=== PATIENT | male | born 1930 | race Caucasian/White ===

== ENCOUNTER 2018-12-29 14:16 | Inpatient (IN) | payer MEDICARE ==
[2018-12-29] MEDS ORDERED: Guaifenesin DM 100-10/5 ML UDCUP PO PRN (17:33)
[2018-12-29] MEDS ORDERED: Bisacodyl 10 MG SUPP PR PRN (17:33)
[2018-12-29] MEDS ORDERED: Acetaminophen 325 MG TAB PO PRN (17:33)
[2018-12-29] MEDS ORDERED: Senokot S 8.6-50 MG TAB PO PRN (17:33)
[2018-12-29 20:38] LABS: Troponin I 0.271 ng/mL (< 0.028)
[2018-12-29] MEDS: Sodium Chloride 0.9% 1,000 ML IV SCH (21:02)
--- NOTE | 2018-12-29 21:20 | HP ---
REASON FOR ADMISSION: Syncope, renal cancer with mets to lungs and likely brain , possible pacemaker malfunction. HISTORY OF PRESENTING ILLNESS: The patient was found down on the floor by his daughter who lives 7 miles from him. She spoke to him yesterday morning, he was all right. The patient states he slept on the floor and he could not get up. He states he was close to his bed, but could not really get up from the floor. Per daughter, he was conscious, but was naked and lying on the floor. He was oriented and responding to questions. Son at bedside who is also the power of prosecuting attorney states that from last 2 months his cognitive function has been slowly declining. He is getting more confused than before. Currently, he has no complaints of chest pain, palpitation, PND, or orthopnea. PAST MEDICAL AND SURGICAL HISTORY: The patient has known history of renal cancer diagnosed in 2001. He was seeing an onc in [place] and has stopped seeing him for the last 2 years now. The patient is not on any medications for the same. Prior to this, he was on sunitinib. He was told that he has had low- grade variety of renal cancer. He has had right nephrectomy for the same done, pacemaker, dyslipidemia, hypertension, chronic atrial fibrillation. CURRENT MEDICATIONS: 1. The patient is on Coumadin, but apparently he is not taking it. 2. Ativan 0.5 mg p.o. at bedtime. 3. Lipitor 10 mg p.o. at bedtime. 4. Coreg 25 mg twice daily. 5. Nifedipine unknown dose daily. ALLERGIES: ALLERGIC TO PENICILLIN. PERSONAL HISTORY: Does not abuse alcohol or drugs. No history of smoking. FAMILY HISTORY: Father committed suicide. The patient does not recall the exact cause of his mom's . CODE STATUS: Do not attempt to resuscitate. This was confirmed with the patient and his son, who is also power of prosecuting attorney at bedside. REVIEW OF SYSTEMS: CONSTITUTIONAL: Negative for weight loss or gain, ability to conduct usual activities. SKIN: Negative for rash, itching. EYES: Negative for double vision, pain. ENT/MOUTH: Negative for nose bleeding, neck stiffness, pain, tenderness. CARDIOVASCULAR: Negative for palpitations, dyspnea on exertion, orthopnea. RESPIRATORY: Negative for shortness of breath, wheezing, cough, hemoptysis, fever or night sweats. GASTROINTESTINAL: Negative for poor appetite, abdominal pain, heartburn, nausea , vomiting, constipation, or diarrhea. GENITOURINARY: Negative for urgency, frequency, dysuria, nocturia. MUSCULOSKELETAL: Negative for pain, swelling. NEUROLOGIC/PSYCHIATRIC: Negative for anxiety, depression. ALLERGY/IMMUNOLOGIC: Negative for skin rash, bleeding tendency. PHYSICAL EXAMINATION: GENERAL: The patient is an 88-year-old male who is currently not in any acute distress. VITAL SIGNS: Blood pressure is 126/74, pulse 110 per minute, respiratory rate 18 per minute, temperature 98 degrees Fahrenheit, and saturating 98% on nasal cannula. NECK: Supple. No elevated JVD. HEENT: Eyes; extraocular muscles intact. Pupils reacting to light. Oral cavity, mucous membranes are dry. No exudates or congestion. CARDIOVASCULAR: S1 and S2 heard. Murmur plus. RESPIRATORY: Air entry 1+ bilateral. Scattered rhonchi plus no rales or wheezes. ABDOMEN: Soft. Bowel sounds heard. No tenderness, rigidity, or guarding. EXTREMITIES: No peripheral edema or calf tenderness. VASCULAR SYSTEM: Peripheral pulses 1+ bilateral. No ischemic ulcerations or gangrene. CENTRAL NERVOUS SYSTEM: No gross focal deficits noted. The patient is alert and awake, but is not fully oriented. PSYCHIATRIC SYSTEM: No obvious hallucinations or delusions. LABORATORY DATA: Chest x-ray done shows bilateral pulmonary nodules consistent with metastatic disease to the lungs. CT head without contrast done showed no acute bleed. There is intraventricular mass in the right lateral ventricle. CK-MB 12.3, troponin I 0.27, CK levels 988, albumin is 2.9, BUN 22, creatinine 1.8, serum bicarb is 18, potassium 3.4, serum glucose 137, AST 38, ALT 22, alkaline phosphatase is 77. PT and INR 15.8 and 1.3. White count of 11, H and H 9.6 and 29, platelet count 331 with 86% neutrophils, MCV is 80. Stool occult blood x1 is negative. The patient's EKG shows sinus rhythm at 80 beats per minute. There is wide QRS complex seen. Q-waves seen in V1, V2, V3, V4. Corrected QT interval is 514 milliseconds, QRS duration is 134 milliseconds. CLINICAL IMPRESSION AND PLAN: The patient will be admitted to telemetry for rhabdomyolysis, syncope, being found on the floor likely for 12 to 24 hours, metastatic renal cell cancer, possible pacemaker malfunction. He will be placed on normal saline at 100 mL/h. We will hold off on anti-platelet agent in view of hemoglobin dropping from 11 g in September to 9 g now and history of black stools a week back. We will obtain pacemaker printout. We will obtain MRI with and without contrast, if his pacemaker is MRI compatible, echo with 2D Doppler for LV function. The family would like to have opinion about his cancer and we will obtain Oncology consultation with Dr. Salomon. Cardiology consultation with Dr. Kohler will be requested. The patient has history of nephrectomy and his current creatinine is 1.8 with baseline around 1.4. He will be gently hydrated with normal saline at 100 mL/h. His overall prognosis is guarded with likely progressive renal cell cancer. The family is also contemplating comfort care at some point after reviewing what the specialist tell them. Also the patient is a bit confused at present and will ask his opinion in the morning once he is more hydrated with likely better cognitive function in the morning. Job ID: [id number] MTDD
[2018-12-29 23:46] VITALS: BMI 26.9
[2018-12-30] MEDS: Sodium Chloride 0.9% 1,000 ML IV SCH ×3 (04:43→20:18)
[2018-12-30 06:12] LABS: #Lymphocytes 1.4 thou/uL (1.20-3.40); #Monocytes 0.6 thou/uL (0.11-0.59); #Neutrophils 8.2 thou/uL (1.40-6.50); %Basophils 0.2 % (0.0-1.0); %Eosinophils 0.1 % (0.0-10.0); %Lymphocytes 13.8 % (21.0-51.0); %Monocytes 5.6 % (0.0-10.0); %Neutrophils 80.3 % (42.0-75.0); Hemoglobin 9.5 g/dL (14.0-18.0); Mean Corpuscular HGB CONC 31.7 g/dL (32.0-36.0); Mean Corpuscular Hemoglobin 26.8 pg (27.0-31.0); Mean Corpuscular Volume 84.7 fL (78.0-98.0); Mean Platelet Volume 5.9 fL (7.4-10.4); Platelet Count 338 thou/uL (130-400); Red Blood Cell (RBC) Count 3.55 mill/uL (4.70-6.10); White Blood Cell (WBC) Count 10.2 thou/uL (4.8-10.8)
[2018-12-30 06:34] LABS: Anion Gap 11 mmol/L (10-20); BUN (Urea Nitrogen) 29 mg/dL (8.4-25.7); Calc. Creatinine Clearance 31 mL/min (70-130); Calcium 8.5 mg/dL (7.8-10.44); Carbon Dioxide 22 mmol/L (23-31); Chloride 105 mmol/L (98-107); Estimated GFR-MDRD 33; Glucose 115 mg/dL (83-110); Potassium 3.4 mmol/L (3.5-5.1); Sodium 135 mmol/L (136-145)
[2018-12-30] MEDS: Carvedilol 3.125 MG TAB PO SCH ×2 (08:45→17:43)
[2018-12-30] MEDS: Enoxaparin Sodium 30 MG/0.3 ML SYRINGE SC SCH (08:45)
--- NOTE | 2018-12-30 11:58 | PDOC.HOSPP ---
- Subjective Encounter Date: 12/30/18 Encounter Time: 11:15 Subjective: awake, not fully oriented daughter at bedside didn't eat much of breakfast this am - Objective Vital Signs & Weight: Vital Signs (12 hours) Temp Pulse Resp BP Pulse Ox 12/30/18 11:30 97.7 F 70 17 103/53 L 97 12/30/18 08:45 95 12/30/18 07:38 98.4 F 75 16 122/58 L 95 12/30/18 03:25 97.5 F L 81 18 119/77 94 L 12/29/18 23:57 97.9 F 75 18 137/60 94 L Weight Weight 188 lb Result Diagrams: 12/30/18 05:44 12/30/18 05:44 Hospitalist ROS - Medication Medications: Active Medications Generic Name Dose Route Start Last Admin Trade Name Freq PRN Reason Stop Dose Admin Carvedilol 3.125 mg 12/30/18 08:00 12/30/18 08:45 Coreg PO 3.125 mg BID-WM JOSE Administration Enoxaparin Sodium 30 mg 12/30/18 09:00 12/30/18 08:45 Lovenox SC 30 mg 0900 JOSE Administration Sodium Chloride 1,000 mls @ 100 mls/hr 12/29/18 17:33 12/30/18 04:43 Normal Saline 0.9% IV 1,000 mls .Q10H JOSE Administration - Exam General Appearance: NAD, awake alert Eye: PERRL, anicteric sclera ENT: no oropharyngeal lesions, dry oral mucosa Neck: supple, no JVD Heart: RRR, no murmur Respiratory: no wheezes, no rales Gastrointestinal: soft, non-tender, non-distended, normal bowel sounds Extremities: no cyanosis, no edema Neurological: cranial nerve grossly intact, no focal deficits Hosp A/P (1) AMARI (acute kidney injury) Code(s): N17.9 - ACUTE KIDNEY FAILURE, UNSPECIFIED Status: Acute (2) Rhabdomyolysis Code(s): M62.82 - RHABDOMYOLYSIS Status: Acute (3) h/o renal cancer with metastases Status: Chronic (4) Physical deconditioning Code(s): R53.81 - OTHER MALAISE Status: Acute (5) Syncope Code(s): R55 - SYNCOPE AND COLLAPSE Status: Acute Qualifiers: Encounter type: subsequent encounter (6) Pacemaker malfunction Code(s): T82.111A - BREAKDOWN OF CARDIAC PULSE GENERATOR (BATTERY), INIT Status: Suspected (7) HTN (hypertension) Code(s): I10 - ESSENTIAL (PRIMARY) HYPERTENSION Status: Chronic Qualifiers: Hypertension type: essential hypertension Qualified Code(s): I10 - Essential (primary) hypertension (8) Chronic anemia Code(s): D64.9 - ANEMIA, UNSPECIFIED Status: Chronic (9) Afib Code(s): I48.91 - UNSPECIFIED ATRIAL FIBRILLATION Status: Chronic Qualifiers: Atrial fibrillation type: paroxysmal Qualified Code(s): I48.0 - Paroxysmal atrial fibrillation - Plan continue gentle iv hydration, ck levels are down to 300's this am creatinine still around 2 pacemaker print out is pending had echo done this am has multiple mets from renal cancer (not on any treatment for 2 yrs now) family wants opinion from Onc MRI brain if pcm is compatible prognosis is guarded PT/OT to mobilize as tolerated d/w daughter at bedside and patient
[2018-12-31 05:34] LABS: #Lymphocytes 1.2 thou/uL (1.20-3.40); #Monocytes 0.5 thou/uL (0.11-0.59); #Neutrophils 6.1 thou/uL (1.40-6.50); %Basophils 0.1 % (0.0-1.0); %Eosinophils 0.4 % (0.0-10.0); %Lymphocytes 15.5 % (21.0-51.0); %Monocytes 6.6 % (0.0-10.0); %Neutrophils 77.4 % (42.0-75.0); Hemoglobin 8.9 g/dL (14.0-18.0); Mean Corpuscular HGB CONC 31.3 g/dL (32.0-36.0); Mean Corpuscular Hemoglobin 26.7 pg (27.0-31.0); Mean Corpuscular Volume 85.5 fL (78.0-98.0); Platelet Count 303 thou/uL (130-400); RBC Distribution Width 15.9 % (11.5-14.5); Red Blood Cell (RBC) Count 3.34 mill/uL (4.70-6.10); White Blood Cell (WBC) Count 7.8 thou/uL (4.8-10.8)
[2018-12-31 05:51] LABS: Anion Gap 12 mmol/L (10-20); BUN (Urea Nitrogen) 27 mg/dL (8.4-25.7); CK (CPK) 149 U/L (30-200); Calc. Creatinine Clearance 40 mL/min (70-130); Calcium 7.9 mg/dL (7.8-10.44); Carbon Dioxide 19 mmol/L (23-31); Chloride 109 mmol/L (98-107); Estimated GFR-MDRD 44; Glucose 107 mg/dL (83-110); Potassium 3.2 mmol/L (3.5-5.1); Sodium 137 mmol/L (136-145)
[2018-12-31] MEDS: Potassium Chloride 20 MEQ TAB PO SCH ×2 (08:52→17:10)
[2018-12-31] MEDS: Ondansetron PF 4 MG/2 ML Vial IVP PRN (08:53)
[2018-12-31] MEDS: Carvedilol 3.125 MG TAB PO SCH ×2 (08:53→17:10)
--- NOTE | 2018-12-31 09:32 | CON ---
DATE OF CONSULTATION: REASON FOR CONSULTATION: Metastatic renal cell carcinoma. HISTORY OF PRESENT ILLNESS: An 88-year-old male with metastatic renal cell carcinoma, who presents to the hospital after being found down on the floor by his daughter. The patient states that he did not lose consciousness. The patient was admitted to the hospital and found to be in rhabdomyolysis, which is currently improving. According to the patient and daughter, he was diagnosed with renal cell carcinoma in approximately 2001 and treated with right nephrectomy and it recurred approximately 10 years later around 2011, and he was treated at [facility] with Sutent for approximately 4 to 5 years with good response, but poor tolerability. The patient states that he only had lung metastasis. Sutent was stopped, and he tried another unknown medicine, but did not tolerate it and only took it for one cycle. He has been off treatment for approximately 2 years without any surveillance or otherwise. He currently only complains of nausea and is not concerned with anything else with time. He states that he does not want any treatment for his cancer. REVIEW OF SYSTEMS: Ten-point review of systems, negative except as per HPI. PAST MEDICAL HISTORY: Renal cell carcinoma, AFib, post pacemaker, hyperlipidemia, hypertension. SOCIAL HISTORY: No smoking, alcohol, or drugs. FAMILY HISTORY: The patient is not sure. CURRENT MEDICATIONS: Reviewed. ALLERGIES: PENICILLIN. PHYSICAL EXAMINATION: VITAL SIGNS: Temperature 97.6, pulse 86, respirations 16, saturating 95% on room air, blood pressure 128/60 up to 188/76. GENERAL APPEARANCE: The patient is lying in bed, in no acute distress. HEENT: Normocephalic and atraumatic. CARDIOVASCULAR: S1, S2 with murmur. RESPIRATIONS: Clear to auscultation. ABDOMEN: Soft, nondistended, nontender. EXTREMITIES: No edema. NEUROLOGIC: Cranial nerves 2 through 12 are grossly intact. Otherwise nonfocal examination. PSYCHIATRIC: Awake, alert, and oriented x3. LABORATORY DATA: White blood cell 7.8, hemoglobin 8.9, and platelets 303. Sodium 137, potassium 3.2, chloride 109, carbon dioxide 19, BUN 27, creatinine 1.93, trending down to 1.51, CK-MB 10, CK 367, currently 149, and troponin peaked at 0.277. IMAGING DATA: CT of the brain w/o contrast shows a rounded intraventricular mass located at the posterior right lateral ventricle that abuts the septum pellucidum measuring 2.3 cm. ASSESSMENT AND PLAN: An 88-year-old male with metastatic renal cell carcinoma with a 2.3 cm brain mass. The patient does not want any specific treatment for his renal cell carcinoma. His performance status prior to this event was very good, and he was driving last week. He would be a candidate for immunotherapy; however, he does not want any treatment. For his brain mass, this could be contributing to some vomiting; however, otherwise is not causing any problems at this time. Renal cell carcinoma has a high risk of being hemorrhagic in the brain, and the patient may benefit from palliative SRS to this lesion to prevent any problems in the future. I have discussed this with the patient and he is open to discussing with Dr. Cabrales, so I will consult him. If the patient changes his mind about systemic treatment I would offer nivolumab, otherwise hospice would be appropriate. Thank you for this consult. Job ID: [id number] MTDD
[2018-12-31] MEDS: Enoxaparin Sodium 30 MG/0.3 ML SYRINGE SC SCH (10:14)
[2018-12-31] MEDS: Sodium Chloride 0.9% 1,000 ML IV SCH ×3 (10:42→20:20)
--- NOTE | 2018-12-31 12:18 | CON ---
DATE OF CONSULTATION: 12/31/2018 REASON FOR CONSULTATION: Mr. De La Cruz is an 88-year-old gentleman with a long history of metastatic renal cell carcinoma, who now presents with at least a solitary brain metastasis. HISTORY OF PRESENT ILLNESS: Mr. De La Cruz was initially diagnosed with renal cell carcinoma in 2001. He apparently underwent a right nephrectomy at that time at [facility]. In 2010, he experienced a recurrence in the lungs. He was treated with Sutent for 4 or 5 years, and apparently, had a good response with that. However, he then began to progress. His oncologist retired, and he switched to another oncologist and did take some different oral medications off and on for a year or two. However, he has not taken any active treatment in the past couple of years and has not followed up with Oncology. Recently, he was found by his daughter to be on the floor and he could not get up. He was conscious and responding, but states he could not get off the floor. He was seen in the emergency room, and a CT scan of the head was performed without contrast, which showed a 2.3 cm intraventricular mass in the right lateral ventricle. There was no evidence of hemorrhage. Ventricular size was felt to be at the upper limits of normal. He had a chest x-ray, which showed numerous lesions consistent with lung metastasis. He was felt to possibly have rhabdomyolysis as his creatine kinase was elevated. His creatinine has also been elevated. He has been admitted to the hospital under gentle hydration. His confusion has improved because of that. Presently, since he has been in the hospital, he has been having vomiting on most days. He denies any nausea or headaches. However, his eating and drinking has significantly decreased in the past several months. He does have some pain in his back, which he attributes to lying in bed. Apparently, he was not having back pain before that. He voices no other complaints. PAST MEDICAL HISTORY: 1. Renal cell carcinoma as mentioned above, status post right radical nephrectomy. 2. Hypertension. 3. Chronic atrial fibrillation. 4. Hypercholesterolemia. 5. Pacemaker placement. 6. He denies other medical surgical problems. MEDICATIONS: 1. Coreg. 2. Lovenox. 3. Zofran. 4. Potassium. ALLERGIES: PENICILLIN, WHICH CAUSES AN UNKNOWN REACTION MANY YEARS AGO. SOCIAL HISTORY: He has no alcohol or cigarette use. He was living in [place], [place] by himself. He does have family members nearby. FAMILY HISTORY: His father at age 57 from suicide. Mother at age 50 from a stroke. There is no other family history of malignancies. REVIEW OF SYSTEMS: Twelve-system review of systems is otherwise negative. PHYSICAL EXAMINATION: VITAL SIGNS: Height is 5 feet 10 inches, weight is 188 pounds, blood pressure is 188/76, pulse is 86, respirations are 16, temperature is 97.6, O2 saturation is 95%. CONSTITUTIONAL: He is alert, but does have some mild confusion. However, with some prompting, he is able to get most details. He did get the year and the month correct. He did not understand his present situation totally, although I could answer many questions about his kidney cancer. He did not recall the last two presidents with some prompting. Karnofsky performance status is a 40%. HEENT: Eyes; pupils equal, round, and reactive to light. Extraocular movements are intact. ENT; oral cavity and oropharynx normal without lesion or erythema. Palate elevates symmetrically. Gingiva is intact. Dentition is poor. NECK: Supple without cervical adenopathy. No thyromegaly. Larynx midline. LUNGS: Breathing nonlabored. Clear to auscultation and percussion. CARDIOVASCULAR: Heart, regular rate and rhythm without murmur. No lower extremity edema. LYMPHATIC: No axillary or inguinal adenopathy. ABDOMEN: Bowel sounds present. Soft, nontender, nondistended without mass or hepatosplenomegaly. Liver percusses to normal size. SKIN: Without rash or purpura. NEUROLOGIC: Cranial nerves 2 through 12 are grossly intact. Motor strength is 5/5 in both upper and lower extremities in all muscle groups tested. However, the patient is unable to sit up, and ambulation is not able to be tested. RADIOLOGIC DATA: CT scan of the head performed in [place], and chest x-ray were both personally reviewed. Again, a CT scan of the head shows a 2.3 cm intraventricular mass in the right lateral ventricle. There does not appear to be any hydrocephalus. There is no evidence of hemorrhage. The chest x-ray was personally reviewed and shows numerous lesions in the lung consistent with lung metastasis with the largest being 5.4 cm. LABORATORY DATA: CBC revealed a white blood cell count of 7800 with a hemoglobin of 8.9, hematocrit of 28.5, and platelet count of 303,000. Chemistry group showed fairly normal electrolytes. His creatinine is 1.51 today. His creatine kinase has decreased from 367 to 149. ASSESSMENT: Mr. De La Cruz is an 88-year-old gentleman with a long history of metastatic renal cell carcinoma, who now presents with at least a solitary brain metastasis. Of note, his CT scan did not have contrast. He also is not able to undergo an MRI because of his pacemaker. He has other comorbid problems including he was felt to have rhabdomyolysis on admission, which has improved. His kidney function is back to baseline. He still has some confusion, although answers most details fairly well. PLAN: I have recommended that we start him on dexamethasone and Protonix to try and help with his symptoms. His symptoms of vomiting are perhaps related to the lesion in his brain. His decreased appetite and failure to thrive are likely related to his progressive cancer. I had a lengthy discussion with him and his daughter, who is at his bedside regarding his possible treatment options. One option that we discussed was that of hospice care. Given his poor performance status and the fact that he does not have curable disease, this I think is a reasonable option. We discussed that would be supportive care only and that his survival would likely be measured in months. We then discussed options for treatment. If we are going to pursue treatment, I would like to get a CT scan of the head with contrast if possible. However, that maybe somewhat limited also given his tenuous kidney status. He cannot have an MRI of the brain unfortunately, because of this pacemaker. This would be to evaluate for more than 1 lesion. Possible options for treatment could include either whole-brain radiation therapy or even more focal treatment to the solitary brain metastasis, if it indeed was solitary on CT scan. The logistics of radiation as well as the benefits and risk of treatment were discussed. Side effects would include, but not be limited to skin reaction, fatigue, lower blood counts, hair losses maybe permanent, headache, nausea, vomiting, and small risk of damage to his normal brain. Again, we had a lengthy discussion regarding his prognosis and treatment options. He clearly indicates that he does not wish to pursue any additional therapy at this time. He understands that his survival is likely to be quite short, but also understands that he does not have curative disease and even with treatment at best, his survival, which would still likely be less than a year. He again indicates a desire not to do any treatment with radiation therapy. He only wants to pursue care with hospice. I asked him to contact me should they change their mind or should they have additional questions. I will communicate this to his hospitalist team, so they can start working on hospice arrangements. Thank you for this interesting consultation. Job ID: [id number]
[2018-12-31] MEDS ORDERED: traMADol HCl 50 MG TAB PO PRN (12:54)
[2018-12-31] MEDS ORDERED: Morphine 2 MG/ML SYRINGE SLOW IVP SCH (13:00)
[2018-12-31] MEDS ORDERED: Promethazine HCl 25 MG/ML VIAL SLOW IVP PRN (13:41)
--- NOTE | 2018-12-31 13:53 | PDOC.HOSPP ---
- Subjective Encounter Date: 12/31/18 Encounter Time: 09:00 Subjective: awake, not in distress daughter at bedside - Objective Vital Signs & Weight: Vital Signs (12 hours) Temp Pulse Resp BP Pulse Ox 12/31/18 11:56 97.4 F L 78 15 157/74 H 98 12/31/18 07:59 97.6 F 86 16 188/76 H 95 12/31/18 04:00 97.4 F L 80 18 128/60 97 Weight Weight 188 lb I&O: 12/30/18 12/31/18 01/01/19 06:59 06:59 06:59 Intake Total 2650 Output Total 825 Balance 1825 Result Diagrams: 12/31/18 04:43 12/31/18 04:43 Hospitalist ROS - Medication Medications: Active Medications Generic Name Dose Route Start Last Admin Trade Name Freq PRN Reason Stop Dose Admin Carvedilol 3.125 mg 12/30/18 08:00 12/31/18 08:53 Coreg PO 3.125 mg BID-WM JOSE Administration Enoxaparin Sodium 30 mg 12/30/18 09:00 12/31/18 10:14 Lovenox SC 30 mg 0900 JOSE Administration Sodium Chloride 1,000 mls @ 100 mls/hr 12/29/18 17:33 12/31/18 10:42 Normal Saline 0.9% IV 1,000 mls .Q10H JOSE Administration Morphine Sulfate 2 mg 12/31/18 13:00 12/31/18 13:16 Morphine SLOW IVP 12/31/18 15:00 2 mg NOW JOSE Administration Ondansetron HCl 4 mg 12/31/18 08:44 12/31/18 08:53 Zofran IVP 4 mg Q6H PRN Administration Nausea/Vomiting Potassium Chloride 40 meq 12/31/18 08:00 12/31/18 08:52 K-Dur PO 01/01/19 08:01 40 meq BID-WM JOSE Administration - Exam General Appearance: awake alert Eye: PERRL, anicteric sclera ENT: no oropharyngeal lesions, dry oral mucosa Neck: supple, no JVD Heart: RRR, no murmur Respiratory: no wheezes, no rales Gastrointestinal: soft, non-tender, normal bowel sounds Extremities: no cyanosis, no edema Neurological: cranial nerve grossly intact, no focal deficits Hosp A/P (1) AMARI (acute kidney injury) Code(s): N17.9 - ACUTE KIDNEY FAILURE, UNSPECIFIED Status: Acute (2) Rhabdomyolysis Code(s): M62.82 - RHABDOMYOLYSIS Status: Resolved (3) h/o renal cancer with metastases Status: Chronic (4) Physical deconditioning Code(s): R53.81 - OTHER MALAISE Status: Acute (5) Syncope Code(s): R55 - SYNCOPE AND COLLAPSE Status: Resolved Qualifiers: Encounter type: subsequent encounter (6) Pacemaker malfunction Code(s): T82.111A - BREAKDOWN OF CARDIAC PULSE GENERATOR (BATTERY), INIT Status: Suspected (7) HTN (hypertension) Code(s): I10 - ESSENTIAL (PRIMARY) HYPERTENSION Status: Chronic Qualifiers: Hypertension type: essential hypertension Qualified Code(s): I10 - Essential (primary) hypertension (8) Chronic anemia Code(s): D64.9 - ANEMIA, UNSPECIFIED Status: Chronic (9) Afib Code(s): I48.91 - UNSPECIFIED ATRIAL FIBRILLATION Status: Chronic Qualifiers: Atrial fibrillation type: paroxysmal Qualified Code(s): I48.0 - Paroxysmal atrial fibrillation - Plan continue gentle iv hydration creatinine still around 1.5 this am pacemaker ?malfunction issue per cardio has multiple mets from renal cancer (not on any treatment for 2 yrs now) Onc and rad onc have spoken to patient and family, they have opted for hospice prognosis is guarded PT/OT to mobilize as tolerated d/w daughter at bedside and patient He is started on steroid for nausea/vomiting with brain met this am
[2018-12-31] MEDS ORDERED: Morphine 2 MG/ML SYRINGE SLOW IVP PRN (17:00)
[2018-12-31] MEDS: Dexamethasone 4 MG TAB PO SCH (20:15)
[2019-01-01 05:45] LABS: Anion Gap 10 mmol/L (10-20); BUN (Urea Nitrogen) 21 mg/dL (8.4-25.7); Calc. Creatinine Clearance 48 mL/min (70-130); Carbon Dioxide 19 mmol/L (23-31); Chloride 112 mmol/L (98-107); Estimated GFR-MDRD 54; Glucose 127 mg/dL (83-110); Potassium 4.5 mmol/L (3.5-5.1); Sodium 136 mmol/L (136-145)
[2019-01-01] MEDS: Levothyroxine Sodium 50 MCG TAB PO SCH (05:47)
[2019-01-01] MEDS: Carvedilol 3.125 MG TAB PO SCH ×2 (08:31→16:18)
[2019-01-01] MEDS: Dexamethasone 4 MG TAB PO SCH ×2 (10:10→20:35)
[2019-01-01] MEDS: Ferrous Sulfate 325 MG TAB PO SCH ×2 (10:10→16:18)
[2019-01-01] MEDS: Enoxaparin Sodium 30 MG/0.3 ML SYRINGE SC SCH (10:11)
[2019-01-01] MEDS: Timolol 0.5% Ophth Soln 5 ml Bottle EA EYE SCH (10:17)
[2019-01-01 10:23] LABS: Iron 13 ug/dL (65-175); Iron Binding Capacity, Total 174 mcg/dL (261-462)
--- NOTE | 2019-01-01 12:52 | PDOC.HOSPP ---
- Subjective Encounter Date: 01/01/19 Encounter Time: 10:45 Subjective: awake, no sob or chest pain son and daughter at bedside - Objective Vital Signs & Weight: Vital Signs (12 hours) Temp Pulse Resp BP BP BP Pulse Ox 01/01/19 11:38 97.5 F L 76 16 142/63 H 98 01/01/19 10:17 78 151/70 H 01/01/19 07:56 94/38 L 01/01/19 07:39 97.3 F L 77 16 87/37 L 97 01/01/19 04:00 98.2 F 74 18 119/57 L 94 L Weight Weight 188 lb I&O: 12/31/18 01/01/19 01/02/19 06:59 06:59 06:59 Intake Total 2650 1890 Output Total 825 625 Balance 1825 1265 Result Diagrams: 12/31/18 04:43 01/01/19 04:54 Hospitalist ROS - Medication Medications: Active Medications Generic Name Dose Route Start Last Admin Trade Name Freq PRN Reason Stop Dose Admin Carvedilol 3.125 mg 12/30/18 08:00 01/01/19 08:31 Coreg PO Not Given BID-WM JOSE Dexamethasone 4 mg 12/31/18 21:00 01/01/19 10:10 Decadron PO 4 mg BID JOSE Administration Enoxaparin Sodium 30 mg 12/30/18 09:00 01/01/19 10:11 Lovenox SC 30 mg 899 JOSE Administration Ferrous Sulfate 325 mg 01/01/19 08:00 01/01/19 10:10 Feosol PO 325 mg BID-WM JOSE Administration Sodium Chloride 1,000 mls @ 50 mls/hr 12/31/18 14:00 12/31/18 20:20 Normal Saline 0.9% IV 1,000 mls .Q20H JOSE Administration Levothyroxine Sodium 50 mcg 01/01/19 06:00 01/01/19 05:47 Synthroid PO 50 mcg 0600 JOSE Administration Ondansetron HCl 4 mg 12/31/18 08:44 12/31/18 08:53 Zofran IVP 4 mg Q6H PRN Administration Nausea/Vomiting Pantoprazole Sodium 40 mg 01/01/19 09:00 01/01/19 10:11 Protonix PO 40 mg DAILY JOSE Administration Timolol Maleate 1 drop 01/01/19 09:00 01/01/19 10:17 Timoptic 0.5% Ophth Soln EA EYE 1 drop DAILY JOSE Administration - Exam General Appearance: awake alert Eye: PERRL, anicteric sclera ENT: no oropharyngeal lesions, moist mucosa Neck: supple, no JVD Heart: RRR, no murmur Respiratory: no wheezes, no rales Gastrointestinal: soft, non-tender, non-distended, normal bowel sounds Extremities: no cyanosis, no edema Neurological: cranial nerve grossly intact, no focal deficits Hosp A/P (1) AMARI (acute kidney injury) Code(s): N17.9 - ACUTE KIDNEY FAILURE, UNSPECIFIED Status: Resolved (2) Rhabdomyolysis Code(s): M62.82 - RHABDOMYOLYSIS Status: Resolved (3) h/o renal cancer with metastases Status: Chronic (4) Physical deconditioning Code(s): R53.81 - OTHER MALAISE Status: Acute (5) Syncope Code(s): R55 - SYNCOPE AND COLLAPSE Status: Resolved Qualifiers: Encounter type: subsequent encounter (6) Pacemaker malfunction Code(s): T82.111A - BREAKDOWN OF CARDIAC PULSE GENERATOR (BATTERY), INIT Status: Suspected (7) HTN (hypertension) Code(s): I10 - ESSENTIAL (PRIMARY) HYPERTENSION Status: Chronic Qualifiers: Hypertension type: essential hypertension Qualified Code(s): I10 - Essential (primary) hypertension (8) Chronic anemia Code(s): D64.9 - ANEMIA, UNSPECIFIED Status: Chronic (9) Afib Code(s): I48.91 - UNSPECIFIED ATRIAL FIBRILLATION Status: Chronic Qualifiers: Atrial fibrillation type: paroxysmal Qualified Code(s): I48.0 - Paroxysmal atrial fibrillation - Plan creatinine almost normal and at baseline given one kidney. pacemaker ?malfunction issue per cardio/EP has multiple mets from renal cancer (not on any treatment for 2 yrs now) Onc and rad onc have spoken to patient and family, they have opted for hospice prognosis is guarded PT/OT to mobilize as tolerated d/w daughter and son at bedside and patient on steroid for nausea/vomiting with brain mets Family is comtemplating Home with 24hr care and hospice or snf with hospice CM to discuss above options with family.
--- NOTE | 2019-01-01 14:44 | PQF ---
JU CONTRERAS, XAVI FOLEY MD [id number] CLINICAL DOCUMENTATION IMPROVEMENT CLARIFICATION FORM: ICD-10 Updated PLEASE DO AN ADDENDUM TO THE PROGRESS NOTE WITH ANY DOCUMENTATION UPDATES OR ADDITIONS AND CARRY THROUGH TO DC SUMMARY. THANK YOU. DATE: 01/01/19 , 01/03/19 ATTN:DR. Hiwot LORENZANA Please exercise your independent, professional judgment in responding to the clarification form. Clinical indicators are provided on the bottom of this form for your review. Please check appropriate box(s): [ x ] Traumatic Rhabdomyolysis [ ] Rhabdomyolysis [ ] Other diagnosis [ ] Unable to determine In addition, please specify: Present on Admission (POA): [ x ] Yes [ ] No [ ] Unable to determine For continuity of documentation, please document condition throughout progress notes and discharge summary. Thank You. CLINICAL INDICATORS - SIGNS / SYMPTOMS / LABS 12/30 BUN 27 CR 1.93 12/31 BUN 29 CR 1.51 12/29 H&P (SALOMÓN) HPI: THE PATIENT WAS FOUND DOWN ON THE FLOOR BY HIS DAUGHTER WHO LIVES 7 MILES FROM HIM. SHE SPOKE TO HIM YESTERDAY MORNING, HE WAS ALRIGHT. THE PATIENT STATES HE SLEPT ON THE FLOOR AND HE COULD NOT GET UP. HE STATES HE WAS CLOSE TO HIS BED, BUT COULD NOT REALLY GET UP FROM THE FLOOR. PER DAUGHTER, HE WAS CONSCIOUS, BUT WAS NAKED AND LYING ON THE FLOOR. HE WAS ORIENTED AND RESPONDING TO QUESTIONS. IMPRESSION AND PLAN: THE PT WILL BE ADMITTED TO [facility] FOR RHABDOMYOLYSIS , SYNCOPE, BEING FOUND ON THE FLOOR FOR LIKELY 12-24 HOURS. 12/30-12/31 PN (SALOMÓN) A/P : 1). ACUTE KIDNEY INJURY, 2). RHABDOMYOLYSIS RISK: AMARI, H/O RENAL CELL CANCER W METS (PN / SALOMÓN) 12/31 TREATMENTS: NS IV FLUIDS ORDERED (SALOMÓN/ 12/29-PRESENT) SERIAL LABS (12/29-PRESENT) MTDD
[2019-01-01] MEDS: Sodium Chloride 0.9% 1,000 ML IV SCH (20:37)
--- NOTE | 2019-01-01 23:39 | CON ---
DATE OF CONSULTATION: 01/01/2019 HISTORY OF PRESENT ILLNESS: I am seeing Mr. 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 His problems are; 1. Admission with fall versus syncope. 2. Chronic atrial fibrillation. 3. History of bradycardia, status post single-chamber pacemaker implant on December 18, [address] [employer] accent SR RF pacemaker. 4. Advanced metastatic renal cell cancer. 5. Hypercholesterolemia. 6. Preserved LVEF by echo on 12/30/2018, 50% to 55%, mild MR, mild to moderate aortic regurgitation, mild TR. ALLERGIES: PENICILLINS. MEDICATIONS: At home included; 1. Nifedipine. 2. Levothyroxine. 3. Timolol. 4. Warfarin. 5. Lorazepam. 6. Atorvastatin. 7. Sunitinib. SUBJECTIVE: Mr. De La Cruz is a poor historian. Most of the history obtained from the H and P and the family. This gentleman has been found on the floor by daughter for unclear duration, might spend the night on the floor, could not get up. On evaluation in the hospital, he was found to have rhabdomyolysis, dehydration and his EKG was assessed. The pacemaker was interrogated. He is now feeling fair. Denies dizziness, loss of consciousness. He has generalized fatigue and weakness. REVIEW OF SYSTEMS: Rest of review of systems otherwise unremarkable. PAST MEDICAL HISTORY: As above. He had a history of renal cell cancer diagnosed in 2001. Oncology was following him, but he stopped seeing them for 2 years. He had a low-grade right renal cancer. He had a right nephrectomy done in the past. He had a pacemaker implant in [place]. Dyslipidemia, hypertension. He has chronic atrial fibrillation, on chronic Coumadin therapy. SOCIAL HISTORY: The patient denies smoking, EtOH, or drug abuse. FAMILY HISTORY: Father committed suicide, not sure about mother's . The patient is DNR. OBJECTIVE DATA: VITAL SIGNS: Blood pressure is 140/64, heart rate 77, respiratory rate 16, temperature 97.6 degrees Fahrenheit. GENERAL: Alert and oriented man, in no apparent distress. NECK: Supple. Jugular veins not distended. CHEST: Coarse without crackles. HEART: Sounds are irregularly irregular. S1 and S2 variable. No murmur or gallop. ABDOMEN: Benign. Bowel sounds positive. EXTREMITIES: Lower extremities without edema, clubbing, or cyanosis. Pulses are adequate. NEUROLOGIC: The patient is nonfocal. MUSCULOSKELETAL: Without joint swelling or deformity. SKIN: Without rash. DATABASE: EKG reviewed initially revealing atrial fibrillation with intermittent ventricular pacing. There was pacing spikes observed after occasional QRS. The ICD interrogation was reviewed in detail revealing a [employer] accent SR single-chamber ventricular pacemaker, battery longevity 6 years or more. Lead parameters are adequate capturing 0.75 at 0.4 milliseconds. Sensing is over 12 mV and the impedance 410 ohms. Current program is VVIR at 70 beats per minute. The patient had about 94% ventricular pacing. Interrogation of the high ventricular rate episodes revealing a last episode on December 28 for about 8 seconds duration, November 16, November 04, October 16, October 17, all short nonsustained episodes are noted. LABORATORY DATA: White count 7.8, hemoglobin 8.9, platelet count is 303. Sodium 136, potassium 4.5, BUN is 21, creatinine 1.26. CK 367 and 149 subsequently. Chest x-ray revealed bilateral pulmonary nodules consistent with metastatic disease to the lungs. 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 ASSESSMENT AND PLAN: Mr. De La Cruz is a pleasant 88-year-old man with low-grade , but metastatic renal cell cancer with likely metastasis detected in the lungs as well as in the brain. He also has adequate functioning single-chamber pacemaker with chronic atrial fibrillation, but predominant ventricular pacing despite his LVEF is normal. The interrogation of the pacemaker reveals occasional high ventricular rate episodes, which are either atrial fibrillation rapid rates or true non sustained ventricular tachycardia. The episodes are progressively short lasting on the unlikely the primary cause for the fall or syncope, but that could contribute. I do no think there is a ventricular pacing capture loss is present. More likely a safety pacing is giving rise to the pacemaker spike following the QRS on one of the EKGs. This could arise from suboptimal evoked potential sensing by his PPM. At this point, I think he is reasonably unlikely to be affected by pacemaker malfunction. I think alternative etiology is more likely including brain metastasis or dehydration causing his fall and inability to get up. Overall, I am not thinking further invasive intervention is necessary for the pacemaker. We will have this again re-evaluated by the pacemaker account development representative, but I am not suspecting significant arrhythmias. The occasional rapid rates are far and few in between currently, also his high ventricular rates are well controlled. As advanced comorbidities, at this point, I would not initiate any aggressive therapies. Resuming anticoagulation is reasonable if felt so by the primary service. Thank you again for allowing me to participate in care of this patient. Job ID: [id number]
[2019-01-02] MEDS: Melatonin 3 MG TAB PO PRN (01:15)
[2019-01-02 05:27] LABS: Anion Gap 10 mmol/L (10-20); BUN (Urea Nitrogen) 23 mg/dL (8.4-25.7); Calc. Creatinine Clearance 51 mL/min (70-130); Calcium 8.1 mg/dL (7.8-10.44); Carbon Dioxide 19 mmol/L (23-31); Chloride 111 mmol/L (98-107); Estimated GFR-MDRD 58; Glucose 147 mg/dL (83-110); Potassium 4.5 mmol/L (3.5-5.1); Sodium 135 mmol/L (136-145)
[2019-01-02] MEDS: Levothyroxine Sodium 50 MCG TAB PO SCH (05:54)
[2019-01-02] MEDS: Dexamethasone 4 MG TAB PO SCH ×2 (08:54→20:13)
[2019-01-02] MEDS: Timolol 0.5% Ophth Soln 5 ml Bottle EA EYE SCH (08:54)
[2019-01-02] MEDS: Carvedilol 3.125 MG TAB PO SCH ×2 (08:54→17:42)
[2019-01-02] MEDS: Ferrous Sulfate 325 MG TAB PO SCH ×2 (08:54→17:42)
[2019-01-02] MEDS: Enoxaparin Sodium 30 MG/0.3 ML SYRINGE SC SCH (08:54)
--- NOTE | 2019-01-02 10:34 | PRG ---
DATE OF SERVICE: 01/02/2019 SUBJECTIVE: Mr. De La Cruz seems to be doing well. Continues to be with some degree of dementia and what appears to be in no apparent distress. OBJECTIVE: VITAL SIGNS: Blood pressure is 134/63, heart rate 78, respirations 17, temperature 97.9 degrees Fahrenheit. GENERAL: Alert and oriented man x2. NECK: Supple. Jugular veins not distended. CHEST: Coarse without crackles. HEART: Sounds are regular rate and rhythm. No murmur or gallop. ABDOMEN: Benign. Bowel sounds positive. EXTREMITIES: Lower extremities; no edema. DATABASE: Telemetry strips reveals continued atrial fibrillation, ventricular pacing, predominantly occasional PVCs. Also occasionally safety pacing is noted after adequate capture. ASSESSMENT AND PLAN: Mr. De La Cruz is a pleasant 88-year-old man, who has history of advanced metastatic renal cell cancer. Also has atrial fibrillation, chronic and ventricular pacemaker in place. His pacemaker interrogation reveals occasional safety pacing after adequate capture, this could be explained likely by suboptimal evoked potential sensing, albeit his QRS sensing is adequate. This feature abnormality likely not causing any issues for him and indeed likely should not cause actual capture failure. My plan would be to reprogram device, update evoked potential, morphology templates, which likely will eliminate this double pacing feature. I discussed with the patient and his son. Son is, at this point, adamant about not making changes in the pacemaker. I attempted to explain this to him, but at this point, he is receiving to the idea. Nevertheless, I think the pacemaker is, at this point, pacing adequately and not likely to this abnormal. It is not likely to result in capture failure or syncope. The patient has advanced metastatic cancer and his prognosis is very poor. He follows with a faith doctor in [place]. I advised him to arrange followup regarding his pacemaker function there. I am happy to see him back if I could be of any further help. Discussed with Dr. Gordon. Thank you for allowing me to participate in the care of this patient. Job ID: [id number]
--- NOTE | 2019-01-02 12:06 | PDOC.HOSPP ---
- Subjective Encounter Date: 01/02/19 Encounter Time: 10:00 Subjective: no sob or palp ate his breakfast responds well to verbal stimuli son at bedside - Objective Vital Signs & Weight: Vital Signs (12 hours) Temp Pulse Resp BP BP Pulse Ox 01/02/19 11:38 97.6 F 70 18 125/60 99 01/02/19 07:39 97.9 F 78 17 134/63 95 01/02/19 05:52 96.6 F L 77 16 137/65 95 Weight Admit Weight 188 lb Weight 187 lb 5 oz I&O: 01/01/19 01/02/19 01/03/19 06:59 06:59 06:59 Intake Total 1890 1270 Output Total 625 350 Balance 1265 920 Result Diagrams: 12/31/18 04:43 01/02/19 04:29 Hospitalist ROS - Medication Medications: Active Medications Generic Name Dose Route Start Last Admin Trade Name Freq PRN Reason Stop Dose Admin Carvedilol 3.125 mg 12/30/18 08:00 01/02/19 08:54 Coreg PO 3.125 mg BID-WM JOSE Administration Dexamethasone 4 mg 12/31/18 21:00 01/02/19 08:54 Decadron PO 4 mg BID JOSE Administration Enoxaparin Sodium 30 mg 12/30/18 09:00 01/02/19 08:54 Lovenox SC 30 mg 00 JOSE Administration Ferrous Sulfate 325 mg 01/01/19 08:00 01/02/19 08:54 Feosol PO 325 mg BID-WM JOSE Administration Sodium Chloride 1,000 mls @ 50 mls/hr 12/31/18 14:00 01/01/19 20:37 Normal Saline 0.9% IV 1,000 mls .Q20H JOSE Administration Levothyroxine Sodium 50 mcg 01/01/19 06:00 01/02/19 05:54 Synthroid PO 50 mcg 0600 JOSE Administration Melatonin 3 mg 01/02/19 00:39 01/02/19 01:15 Melatonin PO 3 mg HSPRN PRN Administration Insomnia Ondansetron HCl 4 mg 12/31/18 08:44 12/31/18 08:53 Zofran IVP 4 mg Q6H PRN Administration Nausea/Vomiting Pantoprazole Sodium 40 mg 01/01/19 09:00 01/02/19 08:54 Protonix PO 40 mg DAILY JOSE Administration Timolol Maleate 1 drop 01/01/19 09:00 01/02/19 08:54 Timoptic 0.5% Ophth Soln EA EYE 1 drop DAILY JOSE Administration - Exam General Appearance: NAD, awake alert Eye: PERRL, anicteric sclera ENT: no oropharyngeal lesions, moist mucosa Neck: supple, no JVD Heart: RRR, no murmur Respiratory: no wheezes, no rales Gastrointestinal: soft, non-tender, non-distended, normal bowel sounds Extremities: no cyanosis, no edema Neurological: cranial nerve grossly intact, no focal deficits Hosp A/P (1) AMARI (acute kidney injury) Code(s): N17.9 - ACUTE KIDNEY FAILURE, UNSPECIFIED Status: Resolved (2) Rhabdomyolysis Code(s): M62.82 - RHABDOMYOLYSIS Status: Resolved (3) h/o renal cancer with metastases Status: Chronic (4) Physical deconditioning Code(s): R53.81 - OTHER MALAISE Status: Acute (5) Syncope Code(s): R55 - SYNCOPE AND COLLAPSE Status: Resolved Qualifiers: Encounter type: subsequent encounter (6) Pacemaker malfunction Code(s): T82.111A - BREAKDOWN OF CARDIAC PULSE GENERATOR (BATTERY), INIT Status: Resolved (7) HTN (hypertension) Code(s): I10 - ESSENTIAL (PRIMARY) HYPERTENSION Status: Chronic Qualifiers: Hypertension type: essential hypertension Qualified Code(s): I10 - Essential (primary) hypertension (8) Chronic anemia Code(s): D64.9 - ANEMIA, UNSPECIFIED Status: Chronic (9) Afib Code(s): I48.91 - UNSPECIFIED ATRIAL FIBRILLATION Status: Chronic Qualifiers: Atrial fibrillation type: paroxysmal Qualified Code(s): I48.0 - Paroxysmal atrial fibrillation - Plan creatinine almost normal and at baseline given one kidney. has multiple mets from renal cancer (not on any treatment for 2 yrs now) Onc and rad onc have spoken to patient and family, they have opted for hospice prognosis is guarded PT/OT to mobilize as tolerated d/w son at bedside and patient on steroid for nausea/vomiting with brain mets DC plan is to skilled unit with hospice if his insurance pays medically stable for dc if placement is ready
[2019-01-02] MEDS: Sodium Chloride 0.9% 1,000 ML IV SCH (14:43)
[2019-01-02] MEDS: Ondansetron PF 4 MG/2 ML Vial IVP PRN (20:10)
[2019-01-02] MEDS: Lorazepam 0.5 MG TAB PO SCH (20:13)
[2019-01-03] MEDS: Levothyroxine Sodium 50 MCG TAB PO SCH (05:57)
[2019-01-03] MEDS: Enoxaparin Sodium 30 MG/0.3 ML SYRINGE SC SCH (08:18)
[2019-01-03] MEDS: Carvedilol 3.125 MG TAB PO SCH ×2 (08:18→17:01)
[2019-01-03] MEDS: Ferrous Sulfate 325 MG TAB PO SCH ×2 (08:18→17:01)
[2019-01-03] MEDS: Dexamethasone 4 MG TAB PO SCH ×2 (08:18→20:31)
[2019-01-03] MEDS: Timolol 0.5% Ophth Soln 5 ml Bottle EA EYE SCH (09:49)
[2019-01-03] MEDS: Ondansetron PF 4 MG/2 ML Vial IVP PRN (12:39)
--- NOTE | 2019-01-03 15:08 | PDOC.HOSPP ---
- Subjective Encounter Date: 01/03/19 Encounter Time: 13:30 Subjective: awake, not in distress daughter at bedside - Objective Vital Signs & Weight: Vital Signs (12 hours) Temp Pulse Resp BP BP Pulse Ox 01/03/19 11:28 97.5 F L 71 18 136/70 96 01/03/19 09:49 79 159/78 H 01/03/19 08:30 93 L 01/03/19 07:51 98.3 F 79 18 159/78 H 93 L Weight Admit Weight 188 lb Weight 187 lb 5 oz I&O: 01/02/19 01/03/19 01/04/19 06:59 06:59 06:59 Intake Total 1270 400 Output Total 350 400 Balance 920 0 Result Diagrams: 12/31/18 04:43 01/02/19 04:29 Hospitalist ROS - Medication Medications: Active Medications Generic Name Dose Route Start Last Admin Trade Name Freq PRN Reason Stop Dose Admin Acetaminophen 650 mg 12/29/18 17:33 01/02/19 20:13 Tylenol PO 650 mg Q4H PRN Administration Headache/Fever/Mild Pain (1-3) Carvedilol 3.125 mg 12/30/18 08:00 01/03/19 08:18 Coreg PO 3.125 mg BID-WM JOSE Administration Dexamethasone 4 mg 12/31/18 21:00 01/03/19 08:18 Decadron PO 4 mg BID JOSE Administration Enoxaparin Sodium 30 mg 12/30/18 09:00 01/03/19 08:18 Lovenox SC 30 mg 0900 JOSE Administration Ferrous Sulfate 325 mg 01/01/19 08:00 01/03/19 08:18 Feosol PO 325 mg BID-WM JOSE Administration Levothyroxine Sodium 50 mcg 01/01/19 06:00 01/03/19 05:57 Synthroid PO 50 mcg 0600 JOSE Administration Lorazepam 0.5 mg 01/02/19 21:00 01/02/19 20:13 Ativan PO 0.5 mg HS JOSE Administration Melatonin 3 mg 01/02/19 00:39 01/02/19 01:15 Melatonin PO 3 mg HSPRN PRN Administration Insomnia Ondansetron HCl 4 mg 12/31/18 08:44 01/03/19 12:39 Zofran IVP 4 mg Q6H PRN Administration Nausea/Vomiting Pantoprazole Sodium 40 mg 01/01/19 09:00 01/03/19 08:18 Protonix PO 40 mg DAILY JOSE Administration Timolol Maleate 1 drop 01/01/19 09:00 01/03/19 09:49 Timoptic 0.5% Ophth Soln EA EYE Not Given DAILY JOSE - Exam General Appearance: NAD, awake alert Eye: PERRL, anicteric sclera ENT: no oropharyngeal lesions, moist mucosa Neck: supple, no JVD Heart: RRR, no murmur Respiratory: no wheezes, no rales Gastrointestinal: soft, non-tender, non-distended, normal bowel sounds Extremities: no cyanosis, no edema Neurological: cranial nerve grossly intact, no focal deficits Hosp A/P (1) AMARI (acute kidney injury) Code(s): N17.9 - ACUTE KIDNEY FAILURE, UNSPECIFIED Status: Resolved (2) Rhabdomyolysis Code(s): M62.82 - RHABDOMYOLYSIS Status: Resolved (3) h/o renal cancer with metastases Status: Chronic (4) Physical deconditioning Code(s): R53.81 - OTHER MALAISE Status: Acute (5) Syncope Code(s): R55 - SYNCOPE AND COLLAPSE Status: Resolved Qualifiers: Encounter type: subsequent encounter (6) Pacemaker malfunction Code(s): T82.111A - BREAKDOWN OF CARDIAC PULSE GENERATOR (BATTERY), INIT Status: Resolved (7) HTN (hypertension) Code(s): I10 - ESSENTIAL (PRIMARY) HYPERTENSION Status: Chronic Qualifiers: Hypertension type: essential hypertension Qualified Code(s): I10 - Essential (primary) hypertension (8) Chronic anemia Code(s): D64.9 - ANEMIA, UNSPECIFIED Status: Chronic (9) Afib Code(s): I48.91 - UNSPECIFIED ATRIAL FIBRILLATION Status: Chronic Qualifiers: Atrial fibrillation type: paroxysmal Qualified Code(s): I48.0 - Paroxysmal atrial fibrillation - Plan creatinine almost normal and at baseline given one kidney. has multiple mets from renal cancer (not on any treatment for 2 yrs now) Onc and rad onc have spoken to patient and family, they have opted for hospice prognosis is guarded PT/OT to mobilize as tolerated on steroid for nausea/vomiting with brain mets DC plan is to skilled unit with hospice if his insurance pays medically stable for dc if placement is ready (family have opted a place in [facility] and one in [place])
[2019-01-03] MEDS: Lorazepam 0.5 MG TAB PO SCH (20:31)
[2019-01-04] MEDS: Melatonin 3 MG TAB PO PRN (00:32)
[2019-01-04] MEDS: Levothyroxine Sodium 50 MCG TAB PO SCH (05:40)
[2019-01-04] MEDS: Dexamethasone 4 MG TAB PO SCH ×2 (07:55→19:38)
[2019-01-04] MEDS: Carvedilol 3.125 MG TAB PO SCH ×2 (07:55→16:33)
[2019-01-04] MEDS: Ferrous Sulfate 325 MG TAB PO SCH ×2 (07:55→16:34)
[2019-01-04 08:00] VITALS: BP 163/89; TEMP 97.4
[2019-01-04] MEDS: Enoxaparin Sodium 30 MG/0.3 ML SYRINGE SC SCH (08:00)
[2019-01-04] MEDS: Timolol 0.5% Ophth Soln 5 ml Bottle EA EYE SCH (19:24)
[2019-01-04] MEDS: Lorazepam 0.5 MG TAB PO SCH (19:38)
--- NOTE | 2019-01-05 11:18 | DIS ---
DATE OF ADMISSION: 12/29/2018 DATE OF DISCHARGE: 01/04/[address]: [facility] in [place]. PRIMARY DISCHARGE DIAGNOSES: Renal cell cancer with multiple metastases including lungs and brain, acute kidney injury, rhabdomyolysis, deconditioning, and syncope. SECONDARY DISCHARGE DIAGNOSES: Hypertension, chronic anemia, chronic paroxysmal atrial fibrillation. PROCEDURES DONE DURING HOSPITALIZATION: Chest x-ray done shows bilateral pulmonary nodules consistent with metastatic disease to lungs. CT brain without contrast done showed intraventricular mass in the right lateral ventricle. No acute hemorrhage. 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 H and H of 9 and 28, platelet count 303, MCV is 85. BUN 23, creatinine 1.1. Serum iron 13, TIBC 174%, saturation 7, ferritin 122. CK levels 149, on admission was 988. Albumin 2.9. BUN and creatinine were 22 and 1.9 on the . INPATIENT CONSULT: Dr. Navneet Salomon for Oncology; Dr. Cabrales for Radiation Oncology; Dr. Db Garnett for Electrophysiology. DISCHARGE PLAN: The patient to follow up with his primary care physician at the half-way in 1 week. BRIEF COURSE DURING HOSPITALIZATION: The patient initially was brought to emergency room on the after he apparently passed out and was found on the floor. He has known history of renal cell cancer, and initial workup revealed multiple metastases in the lungs and right lateral ventricle large mass in the brain. He has been off chemo/immunotherapy for last 2 years as he did not want to pursue further treatment for his renal cell cancer. His family have had an opinion from Oncology here and radiation oncologist as well. They did not want to pursue further active treatment as the patient declined the same. He has had some pacemaker malfunction, for which Dr. Db Garnett was consulted. Mr. De La Cruz also had rhabdomyolysis secondary to being on the floor for unknown period of time, which has resolved. His acute kidney injury has also resolved. He has been accepted to [facility] in [place]. The accepting physician is Dr. Franklin. A total of 35 minutes was spent on discharge plan. Prior to discharge, he is ambulating with physical therapy minimally in the room. Please note, I have seen and examined the patient on the day of discharge. All through his hospitalization, his son and POA were given complete updates. Job ID: [id number] [facility]
--- NOTE | 2019-01-07 06:38 | PQF ---
JU CONTRERAS VINAYA KUMAR MD [id number] CLINICAL DOCUMENTATION CLARIFICATION FORM: POST DISCHARGE Addendum to original discharge summary date: ____ Late entry note date: __ DATE: 01/07/2019 ATTN: Ashanti Husain Please exercise your independent, professional judgment in responding to the clarification form. Clinical indicators are provided on the bottom of this form for your review Based on the clinical indicators below can you please specify the etiology of patients syncope. Please check appropriate box(s): Syncope Due to: [ x ] Dehydration [ ] Pacemaker Malfunction [ ] Traumatic Rhabdomyolysis [ ] Secondary brain cancer [ ]AMARI [ ] Syncope unspecified [ ] Other diagnosis please specify: [ ] Unable to determine For continuity of documentation, please document condition throughout progress notes and discharge summary. Thank You. CLINICAL INDICATORS: HP 12/[address] 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 Gordon admitted to telemetry for rhabdomyolysis, syncope being found on the floor PN 12/[address] Gordon AMARI Consult 01/[address] Garnett I think he is reasonably unlikely to be affected by pacemaker malfuntion. I think alternative etiology is more likely including brain metastasis or dehydration causing his fall and inability to get up Physician documentation 01/05: Traumatic rhabdomyolysis RISK FACTORS: HP 12/29 Dr. Gordon- History of renal cancer HP 12/29 Dr. Gordon- Pacemaker HP 12/29 Dr. Gordon-brain and lung metastatic cancer TREATMENTS: PN 12/30- gentle Hydration Imaging- Echocardiogram Consult Dr. Garnett- pacemaker interrogation (This form is maintained as a part of the permanent medical record) 2014 [employer] All Rights Reserved [email or web address] [not provided] MTDD
== END 2019-01-04 19:55 | DRG 641 ==
LOC: ERS 14:16 → 2NO 16:56 → T4-A 01-02 14:17
PROVIDERS: ADMIT Internal Medicine; ATTEND Internal Medicine
PROC: 4B02XSZ Measurement of Cardiac Pacemaker, External Approach (ICD-10-PCS; principal; 2019-01-01)
DX: E86.0 Dehydration (principal); N17.9 Acute kidney failure, unspecified; C78.01 Secondary malignant neoplasm of right lung; C78.02 Secondary malignant neoplasm of left lung; C79.31 Secondary malignant neoplasm of brain; C64.1 Malignant neoplasm of right kidney, except renal pelvis; T82.119A Breakdown (mechanical) of unspecified cardiac electronic device, initial encounter; T79.6XXA Traumatic ischemia of muscle, initial encounter; D64.9 Anemia, unspecified; Z66 Do not resuscitate; I25.10 Atherosclerotic heart disease of native coronary artery without angina pectoris; E78.5 Hyperlipidemia, unspecified; E78.00 Pure hypercholesterolemia, unspecified; I10 Essential (primary) hypertension; I08.3 Combined rheumatic disorders of mitral, aortic and tricuspid valves; I48.0 Paroxysmal atrial fibrillation; Z53.29 Procedure and treatment not carried out because of patient's decision for other reasons; Z79.01 Long term (current) use of anticoagulants; Z90.5 Acquired absence of kidney; Z95.0 Presence of cardiac pacemaker; Z79.899 Other long term (current) drug therapy; Z88.0 Allergy status to penicillin; E66.9 Obesity, unspecified; Z68.26 Body mass index [BMI] 26.0-26.9, adult; Y84.8 Other medical procedures as the cause of abnormal reaction of the patient, or of later complication, without mention of misadventure at the time of the procedure
CPT/HCPCS: 36415; 80048; 82550; 82553; 82728; 83540; 83550; 85025; 93005; 93306; J1650; J2270; J2405; J8540